=== PATIENT | male | born 1975 | race Caucasian/White ===

== ENCOUNTER 2016-09-01 10:34 | Day surgery (SDC) | payer BC ==
[~2016-09-01 10:34] MED LIST: Bupivacaine 0.5% 30 ML SDV ONE; Lactated Ringers 1,000 ML IV SCH; Lidocaine 1% 20 ML MDV ONE; Lidocaine 2% 5 ML SDV ONE; Midazolam 1 MG/ML 2 ML SDV ONE; Ondansetron 4 MG/2 ML SDV ONE; Propofol 200 MG/20 ML SDV ONE; ceFAZolin 2 GM in Premix Bag 1 BAG IV ONE; fentaNYL 250 MCG/5 ML SDV ONE
[2016-09-01] MEDS ORDERED: ceFAZolin 1 GM Vial ONE (10:40)
--- NOTE | 2016-09-01 11:21 | PCM.PREANE ---
Preanesthetic Assessment - Anesthesia/Transfusion/Family Hx Anesthesia History: Prior Anesthesia Without Reaction Family History of Anesthesia Reaction: No Transfusion History: No Prior Transfusion(s) Intubation History: Unknown - Review of Systems General: No Symptoms Pulmonary: No Symptoms Cardiovascular: No Symptoms Gastrointestinal: No symptoms Neurological: No Symptoms Other: Reports: None - Physical Assessment O2 Sat by Pulse Oximetry: 98 Respiratory Rate: 14 Vital Signs: Last Vital Signs Temp 36.2 C 09/01/16 10:57 Pulse 67 09/01/16 10:57 Resp 14 09/01/16 10:57 BP 117/86 09/01/16 10:57 Pulse Ox 98 09/01/16 10:57 Height: 1.85 m Weight: 89.358 kg ASA Class: 1 Mental Status: Alert & Oriented x3 Airway Class: Mallampati = 1 Dentition: Reports: Normal Dentition Thyro-Mental Finger Breadths: 3 Mouth Opening Finger Breadths: 3 ROM/Head Extension: Full Lungs: Clear to auscultation, Normal respiratory effort Cardiovascular: Regular Rate, Regular Rhythm - Allergies Allergies/Adverse Reactions: Allergies Allergy/AdvReac Type Severity Reaction Status Date / Time No Known Allergies Allergy Verified 09/01/16 07:27 - Blood Blood Available: No - Anesthesia Plan Pre-Op Medication Ordered: None - Acknowledgements Anesthesia Type Planned: General Anesthesia Pt an Appropriate Candidate for the Planned Anesthesia: Yes Alternatives and Risks of Anesthesia Discussed w Pt/Guardian: Yes Pt/Guardian Understands and Agrees with Anesthesia Plan: Yes PreAnesthesia Questionnaire - Past Health History Medical/Surgical History: Denies Medical/Surgical History - Past Surgical History Head Surgeries/Procedures: Reports: None Male Surgical History: Reports: Vasectomy - SUBSTANCE USE Smoking Status *Q: Never Smoker Recreational Drug Use History: No - HOME MEDS Home Medications: Home Meds . [No Known Home Meds] 09/01/16 [History] - CURRENT (IN HOUSE) MEDS Current Meds: Current Medications Lactated Ringer's (Ringers, Lactated) 1,000 mls @ 125 mls/hr IV ASDIRECTED DIANE Last Admin: 09/01/16 10:58 Dose: 125 mls/hr Discontinued Medications Bupivacaine HCl (Marcaine 0.5%) Confirm Administered Dose 30 ml .ROUTE .STK-MED ONE Stop: 09/01/16 10:17 Cefazolin Sodium (Ancef) Confirm Administered Dose 2 gm .ROUTE .STK-MED ONE Stop: 09/01/16 10:41 Fentanyl (Sublimaze) Confirm Administered Dose 250 mcg .ROUTE .STK-MED ONE Stop: 09/01/16 09:34 Cefazolin Sodium/Dextrose 2 gm (/ Premix) 50 mls @ 100 mls/hr IV ONETIME ONE Stop: 09/01/16 08:32 Lidocaine (Xylocaine-Mpf 2%) Confirm Administered Dose 5 ml .ROUTE .STK-MED ONE Stop: 09/01/16 09:34 Lidocaine HCl (Xylocaine 1%) Confirm Administered Dose 20 ml .ROUTE .STK-MED ONE Stop: 09/01/16 10:17 Midazolam HCl (Versed 1 Mg/Ml) Confirm Administered Dose 2 mg .ROUTE .STK-MED ONE Stop: 09/01/16 09:34 Ondansetron HCl (Zofran) Confirm Administered Dose 4 mg .ROUTE .STK-MED ONE Stop: 09/01/16 09:34 Propofol (Diprivan 20 Ml) Confirm Administered Dose 200 mg .ROUTE .STK-MED ONE Stop: 09/01/16 09:34
[2016-09-01] MEDS ORDERED: HYDROmorphone 2 MG/ML Syringe ONE (12:09)
[2016-09-01] MEDS ORDERED: fentaNYL 100 MCG/2 ML SDV IVPUSH PRN (12:17)
--- NOTE | 2016-09-01 13:02 | PN ---
TIME: 12 o'clock noon. IDENTIFICATION: The patient is a 40-year-old male. DATE OF SURGERY: September 01, 2016. PREOPERATIVE DIAGNOSIS: Exostosis of hallux, left foot, and partial tear of extensor hallucis longus tendon, left foot. PLANNED PROCEDURE: Exostectomy of the exostosis of the hallux on the left foot and if necessary, repair of the extensor hallucis longus tendon, left foot. CONSENT: Signed and in the chart. ANESTHESIA: General. The patient confirms n.p.o. since midnight. HISTORY AND PHYSICAL: Completed by Dr. Durbin with no contraindications to surgery. ALLERGIES: No allergies. MEDICATIONS: No current medications. PAST SURGICAL HISTORY: History of vas deferens, vasectomy surgery, but no other surgeries. PAST MEDICAL HISTORY: No current illnesses. LABORATORY DATA: Labs taken from August 27, 2016; white blood cells 7.23, red blood cells 5.18, hemoglobin 16.5, hematocrit 48.6, and platelets 184. Urinalysis was unremarkable. INR 1.0. PTT 28.2. Sodium 138, potassium 4.2, chloride 105, CO2 is 24, BUN is 13, and creatinine 1.1. Random glucose 88. ASSESSMENT AND PLAN: The patient presents for surgical correction today for exostosis on the left hallux and possible partial tear of extensor hallucis longus tendon. No contraindications to surgery noted. No guarantees given or implied. SOLITARIO / BUNNY /[id number]
[2016-09-01] MEDS ORDERED: Ketorolac 30 MG/ML SDV ONE (13:31)
[2016-09-01] MEDS ORDERED: Acetaminophen/HYDROcodone 325-5 MG Tab PO PRN (14:19)
--- NOTE | 2016-09-01 14:19 | PCM.OPNOTE ---
- General Post-Op/Procedure Note Date of Surgery/Procedure: 09/01/16 Operative Procedure(s): exostectomy of exostosis left hallux Findings: consistent with diagnosis Pre Op Diagnosis: exostosis left hallux Post-Op Diagnosis: exostosis left hallux Anesthesia Technique: General LMA Primary Surgeon: Joe Rose Anesthesia Provider: Haylee Perez Pathology: none EBL in mLs: 2 Complications: none Condition: Good Free Text/Narrative:: materials: 4-0 vicryl, 4-0 prolene injectables: 7 ml 0.5% marcaine plain
--- NOTE | 2016-09-01 14:39 | PCM.POSTAN ---
POST ANESTHESIA ASSESSMENT - MENTAL STATUS Mental Status: alert, oriented - RESPIRATORY Respiratory Status: respiratory rate WNL, airway patent, O2 saturation stable - CARDIOVASCULAR CV Status: pulse rate WNL, blood pressure stable - GASTROINTESTINAL GI Status: no symptoms - PAIN Pain Score: 0 - POST OP HYDRATION Hydration Status: adequate & stable
--- NOTE | 2016-09-01 14:40 | PCM48HPAN ---
Post Anesthesia Note - EVALUATION WITHIN 48HRS OF ANESTHETIC Vital Signs in Normal Range: Yes Patient Participated in Evaluation: Yes Respiratory Function Stable: Yes Airway Patent: Yes Cardiovascular Function Stable: Yes Hydration Status Stable: Yes Pain Control Satisfactory: Yes Nausea and Vomiting Control Satisfactory: Yes Mental Status Recovered: Yes
[2016-09-01 15:04] VITALS: BP 128/76
--- NOTE | 2016-09-01 16:29 | CR ---
EXAMINATION: Left foot HISTORY: exostectomy COMPARISON: None TECHNIQUE: 4 fluoroscopic images provided FINDINGS/IMPRESSION: Operative control films demonstrate removal of several spurs at the first inter phalangeal joint. The remaining osseous structures appear intact. There is possibly a small linear f oreign body projecting between the webspace of the second and third digits.
--- NOTE | 2016-09-02 01:37 | OR ---
SURGEON: Joe Rose DPM DATE OF PROCEDURE: 09/01/2016 PREOPERATIVE DIAGNOSIS: Exostosis of hallux, left foot. POSTOPERATIVE DIAGNOSIS: Exostosis of hallux, left foot. PROCEDURE: Exostectomy of hallux, left foot. ANESTHESIA: General LMA. COMPLICATIONS: None seen. MATERIALS: 4-0 Vicryl and 4-0 Prolene. INJECTABLES: 7 mL of 0.5% Marcaine plain. HEMOSTASIS: Above ankle pneumatic tourniquet inflated to a pressure of 250 mmHg. JUSTIFICATION FOR PROCEDURE: The patient presented in my office for initial office visit with complaints of pain over the left foot and particularly over the left great toe. The patient had no history of injury, but on examination initially had no reproducible pain. As I released the patient's foot during examination, he recalled an excruciating pain, I then examined the patient further and determined that when the foot was plantar flexed and the hallux was plantar flexed at the interphalangeal joint, excruciating pain was consistently elicited. X-ray was then taken and revealed an exostosis at the interphalangeal joint of the hallux of the left foot. With a particularly sharp formation primarily over the head of the proximal phalanx at the interphalangeal joint, but also including the base of the distal phalanx of the hallux. Conservative options were discussed including a rigid Weinstein's extension to attempt to stabilize the foot, however, given the fact that pain was elicited on plantar flexion rather than dorsiflexion, it was not predicted to yield sufficient relief for the patient. I advised the patient that only surgical correction could remove the source of the problem and the patient was very clear that he did not want to delay treatment with any conservative measures and I agreed with him, it was sensible to proceed the surgery. The patient was consented for surgery with all questions answered and no guarantees expressed or implied. NARRATIVE: The patient was identified by his name, was brought to the operating room, placed on the operating table in a supine position at which time, an aseptic scrub and drape was performed about the patient's left foot. Hair over the interphalangeal joint area of the left great toe was shaved off and removed carefully to ensure no hair of any length could interfere during the procedure. An incision line was planned and made running from the mid portion of the proximal phalanx of the hallux of the left foot and proceeding in a linear fashion distally over the interphalangeal joint and terminating just proximal to the proximal nail border. An Esmarch bandage exsanguination was then performed and the foot was elevated and the tourniquet was raised to a pressure of 250 mmHg. With the tourniquet being affixed just above the malleoli of the patient's left ankle. Incision was made using a 15 blade through the skin and it was deepened to the subcutaneous tissue with care being taken to cut, clamp, or ligate any small bleeders and the extensor hallucis longus tendon was readily identified and was carefully freed on its medial and lateral portions and undermined using both sharp and blunt dissection. Intraoperative fluoroscopy was utilized prior to the start of the procedure and during the procedure as necessary. The previously identified spur was readily visualized and following more careful dissection isolated and was removed with a combination of a bone rongeur and a power rasp. After confirming that the spur had been completely removed, the tendon was re-examined and determined to be in good condition other than the most medial and most lateral portions which were slightly incised during the procedure to enable full access for removal of the spur over both the distal portion of the proximal phalanx and the proximal portion of the distal phalanx. The entire area was flushed with normal sterile saline and reexamined, motion was determined to be improved on the plantar and dorsal flexion of the interphalangeal joint of the hallux of the left foot. The most medial and lateral portions of the tendon which had been successfully maintained intact during this procedure with careful retraction throughout were then reapproximated using 4-0 Vicryl suture. The subcutaneous layer was also reapproximated using 4-0 Vicryl suture during the initial closure and the superficial skin was reapproximated using 4-0 Prolene suture in a combination of simple and horizontal technique. 7 mL of 0.5% Marcaine plain was then infiltrated about the great toe primarily at the first metatarsophalangeal joint area. The incision site was covered with Betadine-soaked Xeroform gauze followed by 4x4 gauze, followed by a Sola roll being applied over the entire site of the left foot and secured about the ankle. These dressings were then secured with a 4 inch Abhishek bandage. The tourniquet was deflated prior to application of the Abhishek bandage. The patient had an immediate hyperemic response to all digits of the toes signifying that the vascular status was intact. The patient tolerated the procedure and anesthesia well, and was transported to the recovery room and after a brief stay in the recovery room area, he was transported back to his preoperative room and is to be discharged with written and verbal instructions, regarding weightbearing which is allowed, but to be kept to a minimum on the left foot using the dispensed postoperative shoe which was affixed in the recovery room area. The patient was also given a prescription for Stopover for analgesic purposes and instructions to contact me on my cell phone, which was given with any concerns as well to contact my office and to have an appointment scheduled for followup on Thursday, until then he is to keep dressings clean, dry, and intact. Maintain the dressings, elevate the foot whenever possible with two pillows under the leg and utilize the dispensed shower bag for the purposes of bathing in order to keep everything clean and dry. SOLITARIO HOLLIS /[id number] MTDD
== END 2016-09-01 15:42 | disposition home or self-care (01) ==
LOC: MW.SDS 10:34
PROVIDERS: ATTEND Podiatrist Foot & Ankle Surgery
PROC: 0QBR0ZZ Excision of Left Toe Phalanx, Open Approach (ICD-10-PCS; principal; 2016-09-01)
DX: M89.9 Disorder of bone, unspecified (principal); Z98.52 Vasectomy status
CPT/HCPCS: 28108; 76000; J0690; J1170; J1885; J2250; J2405; J3010; J7120; 01480; J2704